=== PATIENT | female | born 1970 | race Caucasian/White ===

== ENCOUNTER 2017-11-04 09:56 | Emergency (ER) | payer BC ==
[2017-11-04 12:25] LABS: Hematocrit 34 % (35-47); Hemoglobin 10.7 g/dl (12.0-16.0); Mean Corpuscular HGB Conc 32 g/dl (31-36); Mean Corpuscular Hemoglobin 23 pg (27-31); Mean Corpuscular Volume 73 fL (80-97); Mean Platelet Volume 9 um3 (7.4-10.4); Platelet Count 220 10^3/ul (150-450); Red Blood Count 4.67 10^6/ul (4.0-5.4); Red Cell Distribution Width 17 % (10.5-15); White Blood Count 6.4 10^3/ul (3.5-10.8)
[2017-11-04 12:44] LABS: EGFR Non-African American 123.6 (>60)
[2017-11-04 12:52] LABS: Urine Appearance Clear; Urine Blood Negative (Negative); Urine Color Yellow; Urine Ketones Negative (Negative); Urine Protein Negative (Negative); Urine Urobilinogen Negative (Negative)
--- NOTE | 2017-11-04 13:04 | RAD ---
INDICATION: Intermittent right flank pain COMPARISON: None TECHNIQUE: Noncontrast axial source images were acquired from the level hemidiaphragms to the symphysis pubis as part of CT imaging for renal stone. Lung bases: The lung bases are clear. Liver: The liver is enlarged with findings of hepatic steatosis. Noncontrast imaging shows no evidence of a hepatic mass or ductal dilatation. Gallbladder: There are subtle CT findings of cholelithiasis. Spleen: There is moderate splenomegaly. The noncontrast CT appearance is normal. Pancreas: Noncontrast imaging shows no pancreatic mass or ductal dilitation. Adrenal glands: No masses are identified. Kidneys/Bladder: There is no evidence of nephrolithiasis or CT evidence of hydronephrosis. Noncontrast imaging shows no evidence of a renal mass. The bladder is unremarkable.. Adenopathy: There is no evidence of intraperitoneal or retroperitoneal adenopathy. Evaluation is limited without oral contrast. Fluid collections: There are no free or localized fluid collections. Vessels: The aorta and iliac vessels are normal in caliber. There are no significant atherosclerotic changes. The IVC appears normal Pelvic organs: There is fibroid uterus. At least one fibroid is calcified. There are cysts in both adnexal regions measuring 3.3 cm on the right and 3 cm on the left. GI tract: Evaluation of the bowel is limited without oral contrast. The stomach, small bowel, and lower GI tract appear grossly normal. There are no obstructive findings. The appendix is visualized and appears normal. Soft tissues: No soft tissue abnormalities of the extraperitoneal abdomen or pelvis are identified. Osseous structures: There are no acute osseous findings. IMPRESSION: 1. No CT evidence of urolithiasis. 2. Normal appendix. 3. Cholelithiasis. 4. Fibroid uterus. Bilateral adnexal cysts. The uterus and ovaries could be evaluated with pelvic sonography if clinically indicated.
[2017-11-04 14:11] LABS: ABS Basophils 0 10^3/ul (0-0.2); ABS Eosinophils 0.3 10^3/ul (0-0.6); ABS Lymphocytes 1.2 10^3/ul (1.0-4.8); ABS Monocytes 0.6 10^3/ul (0-0.8); ABS Neutrophils 4.3 10^3/ul (1.5-7.7); ABS Nucleated RBC 0 10^3/ul; Eosinophil % 4.6 % (0-6); Lymphocyte % 18.7 % (25-47); Nucleated Red Blood Cells % 0
[2017-11-04 14:19] VITALS: BP 136/80
--- NOTE | 2017-11-11 14:24 | ED ---
Lennie Ly Emily, scribed for Aubrey Crandall MD on 11/04/17 at 1224 . Back Pain - HPI Summary HPI Summary: This patient is a 47 year old F presenting to [facility] accompanied by family with a chief complaint of constant right lower back pain radiating to the abdomen that began one and a half months ago and worsened at 0800 this morning. The patient rates the pain 5/10 in severity. Symptoms aggravated by nothing. Symptoms alleviated by nothing. Patient reports R shoulder pain. Patient denies dysuria, hematuria, dysuria, cough, and bilateral LE pain. Pt reports she has been diagnosed with gall stones. Pt reports Dr. Mercer recommending her to physical therapy. - History of Current Complaint Chief Complaint: EDAbdPain Stated Complaint: POSSIBLE GALLSTONE Time Seen by Provider: 11/04/17 11:31 Hx Obtained From: Patient Onset/Duration: Sudden Onset, Lasting Weeks, Still Present Onset/Duration: Started Weeks Ago, Still Present Timing: Constant Back Pain Location: Is Discrete @ - Right lower back Severity Initially: Moderate Severity Currently: Moderate Pain Intensity: 5 Pain Scale Used: 0-10 Numeric Aggravating Symptom(s): Nothing Alleviating Symptom(s): Nothing Associated Signs And Symptoms: Positive: Other - Positive R shoulder pain. Negative dysuria, hematuria, dysuria, cough, and bilateral LE pain - Allergies/Home Medications Allergies/Adverse Reactions: Allergies Allergy/AdvReac Type Severity Reaction Status Date / Time Amoxicillin Allergy Rash Verified 11/04/17 09:59 Sulfa Antibiotics Allergy Rash Verified 11/04/17 09:59 Tramadol [From Ultram] Allergy See Comment Verified 11/04/17 09:59 PMH/Surg Hx/FS Hx/Imm Hx Previously Healthy: Yes Endocrine/Hematology History: Denies: Hx Diabetes Cardiovascular History: Denies: Hx Hypertension GI History: Reports: Other GI Disorders - Positive gallstones - Cancer History Hx Chemotherapy: No Hx Radiation Therapy: No Infectious Disease History: No Infectious Disease History: Denies: Traveled Outside the [place] in Last 30 Days - Family History Known Family History: Positive: Other - Breast CA - Social History Occupation: Employed Full-time Lives: With Family Alcohol Use: Occasionally Substance Use Type: Reports: None Smoking Status (MU): Never Smoked Tobacco Review of Systems Negative: Fever, Chills Negative: Erythema Negative: Sore Throat Negative: Chest Pain Negative: Shortness Of Breath, Cough Negative: Abdominal Pain, Vomiting, Nausea Negative: dysuria, hematuria Positive: Other - Positive back pain and R shoulder pain. Negative bilateral LE pain. Negative: Edema Negative: Rash Neurological: Other - Negative lightheadedness All Other Systems Reviewed And Are Negative: Yes Physical Exam - Summary Physical Exam Summary: Constitutional: Well-developed, Well-nourished, Alert. (-) Distressed Skin: Warm, Dry HENT: Normocephalic; Atraumatic Eyes: Conjunctiva normal Neck: Musculoskeletal ROM normal neck. (-) JVD, (-) Stridor, (-) Tracheal deviation Cardio: Rhythm regular, rate normal, Heart sounds normal; Intact distal pulses; The pedal pulses are 2+ and symmetric. Radial pulses are 2+ and symmetric. (-) Murmur Pulmonary/Chest wall: Effort normal. (-) Respiratory distress, (-) Wheezes, (-) Rales Abd: Soft, (-) Tenderness, (-) Distension, (-) Guarding, (-) Rebound Musculoskeletal: (-) Edema Lymph: (-) Cervical adenopathy Neuro: Alert, Oriented x3 Psych: Mood and affect Normal Triage Information Reviewed: Yes Vital Signs On Initial Exam: Initial Vitals Temp Pulse Resp BP Pulse Ox 98.2 F 86 16 150/106 97 11/04/17 09:59 11/04/17 09:59 11/04/17 09:59 11/04/17 09:59 11/04/17 09:59 Vital Signs Reviewed: Yes Diagnostics - Vital Signs Vital Signs Temp Pulse Resp BP Pulse Ox 11/04/17 11:30 74 146/84 96 11/04/17 11:18 85 98 11/04/17 11:17 150/95 11/04/17 09:59 98.2 F 86 16 150/106 97 - Laboratory Result Diagrams: 11/04/17 12:03 11/04/17 12:03 Lab Statement: Any lab studies that have been ordered have been reviewed, and results considered in the medical decision making process. - CT CT Abdomen/Pelvis CT Interpretation Completed By: Radiologist - Abdomen/pelvis CT reveals, per radiologist, 1. No CT evidence of urolithiasis. 2. Normal appendix. 3. Cholelithiasis. 4. Fibroid uterus. Bilateral adnexal cysts. The uterus and ovaries could be evaluated with pelvic sonography if clinically indicated. ED physician has reviewed this radiology report. Re-Evaluation - Re-Evaluation First Eval Re-Evaluation Time: 13:54 Change: Improved Comment: Pt is experiencing 0/10 pain Back Pain Course/Dx - Course Assessment/Plan: Labs are negative. Do not suspect impacted stone. CT was to r/ o mass or kidney stone given how long the pt has symptoms. I performed a pelvic exam with Gin present. No cervical motion tenderness or masses. I do not suspect ovarian torsion or PID. - Diagnoses Provider Diagnoses: Biliary colic, Right flank pain Discharge - Discharge Plan Condition: Stable Disposition: HOME Patient Education Materials: Biliary Colic (ED), Low Fat Diet (ED) Referrals: Rui Larios MD [Primary Care Provider] - 3 Days Additional Instructions: FOLLOW A LOW FAT DIET. RETURN TO THE EMERGENCY DEPARTMENT FOR NEW OR CHANGING SYMPTOMS. The documentation as recorded by the Lennie dolan Emily accurately reflects the service I personally performed and the decisions made by me, Aubrey Crandall MD.
== END 2017-11-04 14:10 | disposition home or self-care (01) ==
LOC: ED 09:56
DX: K80.50 Calculus of bile duct without cholangitis or cholecystitis without obstruction (principal); R10.9 Unspecified abdominal pain
CPT/HCPCS: 36415; 74176; 80053; 81003; 83605; 83690; 84702; 85025; 86140; 87040; 87480; 87491; 87510; 87591; 87661; 99282